=== PATIENT | female | born 1990 | race Caucasian/White ===

== ENCOUNTER 2016-12-11 18:50 | Emergency (ER) | payer OTHER ==
--- NOTE | 2016-12-11 20:10 | ED ---
General Adult HPI - General Chief complaint: Skin/Abscess/Foreign Body Stated complaint: lump on left arm Time Seen by Provider: 12/11/16 20:01 Source: patient, RN notes reviewed Mode of arrival: ambulatory Limitations: no limitations - History of Present Illness Initial comments: Patient is a 26-year-old female who presents emergency room today with chief complaint of an abscess to the left forearm. She does admit that she should a few scattered spots just below the main area. She states that she has been pushing squeezing getting drainage out of the area. She also admits that she broke out in a "rash" to the right knee. She states similar. She states she's never had similar symptoms. Denies any other complaints or associated symptoms at this time. Patient denies any recent fever, chills, shortness of breath, chest pain, back pain, abdominal pain, nausea or vomiting, numbness or tingling , dysuria or hematuria, constipation or diarrhea, headaches or visual changes, or any other complaints. - Related Data Previous Rx's Medication Instructions Recorded Sulfamethox-Tmp 800-160Mg [Bactrim 1 tab PO Q12HR #28 tab 12/11/16 DS 800-160 mg] Allergies Allergy/AdvReac Type Severity Reaction Status Date / Time azithromycin Allergy Unknown Verified 12/11/16 18:57 [From Zithromax Z-Yohannes] famotidine [From Pepcid] Allergy Unknown Verified 12/11/16 18:57 Review of Systems ROS Statement: Those systems with pertinent positive or pertinent negative responses have been documented in the HPI. ROS Other: All systems not noted in ROS Statement are negative. Past Medical History Past Medical History: No Reported History History of Any Multi-Drug Resistant Organisms: None Reported Past Surgical History: No Surgical Hx Reported Past Psychological History: No Psychological Hx Reported Smoking Status: Current every day smoker Past Alcohol Use History: None Reported Past Drug Use History: None Reported General Exam - General Exam Comments Initial Comments: General: The patient is awake and alert, in no distress, and does not appear acutely ill. Eye: Pupils are equal, round and reactive to light, extra-ocular movements are intact. No nystagmus. There is normal conjunctiva bilaterally. No signs of icterus. Ears, nose, mouth and throat: There are moist mucous membranes and no oral lesions. Neck: The neck is supple, there is no tenderness or JVD. Cardiovascular: There is a regular rate and rhythm. No murmur, rub or gallop is appreciated. Respiratory: Lungs are clear to auscultation, respirations are non-labored, breath sounds are equal. No wheezes, stridor, rales, or rhonchi. Musculoskeletal: Normal ROM, no tenderness. Strength 5/5. Sensation intact. Pulses equal bilaterally 2+. Neurological: A&O x 3. CN II-XII intact, There are no obvious motor or sensory deficits. Coordination appears grossly intact. Speech is normal. Skin: Does have small abscess to the left forearm measuring approximately centimeter across. There is an ulcerated area centrally does have some yellow drainage. Psychiatric: Cooperative, appropriate mood & affect, normal judgment. Limitations: no limitations Course Vital Signs 12/11/16 18:57 Temperature 98.1 F Pulse Rate 91 Respiratory 17 Rate Blood Pressure 130/76 O2 Sat by Pulse 100 Oximetry Medical Decision Making - Medical Decision Making Abscesses drained here the emergency room. Will be started on antibiotics of Bactrim. Advised to follow family doctor return if any symptoms increase worsen or for any other concerns Disposition Clinical Impression: Abscess Disposition: HOME SELF-CARE Condition: Good Instructions: Abscess (ED) Additional Instructions: Please his antibiotic as prescribed. Please continue warm compresses to the affected area. Please follow-up with family doctor in the next 2 days of symptoms have not improved. Please return to emergency room if the symptoms increase or worsen or for any other concerns. Prescriptions: Sulfamethox-Tmp 800-160Mg [Bactrim DS 800-160 mg] 1 tab PO Q12HR #28 tab Referrals: None,Stated [Primary Care Provider] - 1-2 days Shahnaz Cardoza MD [REFERRING] - 1-2 days Scotty Ulrich DO [STAFF PHYSICIAN] - 1-2 days Time of Disposition: 20:08
[2016-12-11 20:35] VITALS: BP 126/80; PULSE 94; RESP 16; TEMP 98.7
== END 2016-12-11 20:34 | disposition home or self-care (01) ==
LOC: EC 18:50
DX: L02.414 Cutaneous abscess of left upper limb (principal); R21 Rash and other nonspecific skin eruption; F17.200 Nicotine dependence, unspecified, uncomplicated; Z88.1 Allergy status to other antibiotic agents; Z88.8 Allergy status to other drugs, medicaments and biological substances
CPT/HCPCS: 99282

== ENCOUNTER 2017-02-04 19:47 | Emergency (ER) | payer OTHER ==
[2017-02-04 20:09] VITALS: BP 134/87; PULSE 99; RESP 16; TEMP 98.6
--- NOTE | 2017-02-04 20:30 | ED ---
General Adult HPI - General Chief complaint: Skin/Abscess/Foreign Body Stated complaint: Skin abcess Time Seen by Provider: 02/04/17 19:53 Source: patient, RN notes reviewed Mode of arrival: ambulatory Limitations: no limitations - History of Present Illness Initial comments: This is a 26-year-old female who presents to the emergency department with chief complaint of right axilla abscess. Patient states that it has been present for 4 days. She states that this started as a small white head pimple. She states that the pain has progressed and radiates down her arm. She states that 2 months ago she had an abscess on her left forearm that drained on its own and was resolved with prescription of Bactrim. Denies fever, chills, chest pain, shortness of breath, abdominal pain, nausea or vomiting, constipation or diarrhea, dysuria or hematuria, numbness or tingling, headache or vision changes. - Related Data Previous Rx's Medication Instructions Recorded Sulfamethox-Tmp 800-160Mg [Bactrim 1 tab PO Q12HR #20 tab 02/04/17 DS 800-160 mg] Allergies Allergy/AdvReac Type Severity Reaction Status Date / Time azithromycin Allergy Unknown Verified 12/11/16 18:57 [From Zithromax Z-Yohannes] famotidine [From Pepcid] Allergy Unknown Verified 12/11/16 18:57 Review of Systems ROS Statement: Those systems with pertinent positive or pertinent negative responses have been documented in the HPI. ROS Other: All systems not noted in ROS Statement are negative. Past Medical History Past Medical History: No Reported History History of Any Multi-Drug Resistant Organisms: None Reported Past Surgical History: No Surgical Hx Reported Past Psychological History: No Psychological Hx Reported Smoking Status: Current every day smoker Past Alcohol Use History: None Reported Past Drug Use History: None Reported General Exam - General Exam Comments Initial Comments: General: Awake and alert, well-developed; in no apparent distress. HEENT: Head atraumatic, normocephalic. Pupils are equal, round and reactive to light. Extraocular movements intact. Neck: Supple. Normal ROM. Cardiovascular: Regular rate and rhythm. No murmurs, rubs or gallops. Chest symmetrical. Respiratory: Lungs clear to auscultation bilaterally. No wheezes, rales or rhonchi. Normal respiratory effort with no use of accessory muscles. Musculoskeletal: Normal range of motion of right shoulder. Sensation is intact. Radial pulses 2+ equal and palpable bilaterally. Skin: [place], warm and dry without rashes. There is an approximately 2 cm firm mass in right axilla with overlying pustule. Tenderness on palpation of this area. Neurological: Alert and oriented x3. CN II-XII grossly intact. Speech is fluent and answers are appropriate. No focal neuro deficits. Psychiatric: Normal mood and affect. No overt signs of depression or anxiety noted. Limitations: no limitations Course Vital Signs 02/04/17 20:05 Temperature 98.6 F Pulse Rate 99 Respiratory 16 Rate Blood Pressure 134/87 O2 Sat by Pulse 98 Oximetry Procedures - Incision & Drainage Consent Obtained: verbal consent Indication: abscess Site: upper extremity (right axilla) Size (cm): 2 Anesthetic Used: lidocaine 1% Amount (mLs): 3 I&D Cleaning Method: Alcohol Wipe Sterile Field Used?: No Scalpel Used: #11 Needle Aspiration Performed?: No Irrigation Performed?: No I&D Drainage Obtained: Pus, Blood Culture Obtained?: No Patient Tolerated Procedure: well, no complications Medical Decision Making - Medical Decision Making This is a 26-year-old female who presents with chief complaint of right axilla abscess. There is a 2 cm firm mass with overlying pustule in right axilla. I& D was performed. Patient tolerated well without complication. She is in no acute distress at this time. She will be discharged home with a prescription for Bactrim. She is to follow up with her primary care provider in 1-2 days. Patient was educated on using warm compresses and to allow incision site to drain. She is in agreement to the plan and voices understanding. All questions were answered. Disposition Clinical Impression: Abscess of axilla, right Disposition: HOME SELF-CARE Condition: Good Instructions: Abscess (ED), Warm Compress or Soak (ED) Additional Instructions: Please take medications as prescribed. Please follow up with primary care provider within 1-2 days. Return to emergency department if symptoms should worsen or any concerns arise. Prescriptions: Sulfamethox-Tmp 800-160Mg [Bactrim DS 800-160 mg] 1 tab PO Q12HR #20 tab Referrals: None,Stated [Primary Care Provider] - 1-2 days Time of Disposition: 20:30
== END 2017-02-04 20:35 | disposition home or self-care (01) ==
LOC: EC 19:47
DX: L02.411 Cutaneous abscess of right axilla (principal); F17.200 Nicotine dependence, unspecified, uncomplicated; Z88.1 Allergy status to other antibiotic agents; Z88.8 Allergy status to other drugs, medicaments and biological substances
CPT/HCPCS: 10060; 99283

== ENCOUNTER 2017-03-15 20:43 | Emergency (ER) | payer OTHER ==
[2017-03-16 11:33] LABS: Amorphous Sediment,Urine Rare /hpf; Appearance,Urine Cloudy (Clear); Bilirubin,Urine Negative (Negative); Blood,Urine Negative (Negative); Color,Urine Yellow; Glucose,Urine (UA) Negative (Negative); Ketones,Urine Negative (Negative); Leukocyte Esterase,Urine Moderate (Negative); Nitrite,Urine Negative (Negative); PH, Urine 6.5 (5.0-8.0); Protein,Urine Trace (Negative); RBC,Urine 1 /hpf (0-5); Specific Gravity,Urine 1.026 (1.001-1.035); Squamous Epithelial Cell,Urine 15 /hpf (0-4); Urobilinogen,Urine <2.0 mg/dL (<2.0); WBC,Urine 13 /hpf (0-5)
--- NOTE | 2017-03-16 16:45 | US ---
EXAMINATION TYPE: US pelvis complete transvag EXAM PERFORMED: transabdominal (TA) and transvaginal (TV) EXAM MEASUREMENTS: GESTATIONAL AGE / DATING Physician Established: not established Dates by LMP: (5wks/0 days) EDC: 11/16/17 Dates by First Scan: no prior scan Dates by Current Scan: no evidence of IUP at this time MATERNAL ANATOMY Uterus: 8.8 x 4.3 x 5.5cm a hyperechoic focus which causes posterior acoustic shadowing is identifie d within the uterus. Right Ovary: 3.7 x 2.3 x 2.4cm physiologic changes are noted. Left Ovary: 3.0 x 1.9 x 2.1cm physiologic changes are noted. Post CDS / Adnexa: anechoic area adjacent to right ovary = 1.0cm there could be a small amount of fr ee fluid. Presence of corpus luteal cyst: yes, right ovary = 1.6 x 1.3 x 1.7cm GESTATION / SURVEY No IUP seen at this time PATIENT HISTORY: IUD placement 1.5 years ago Date of LMP: 02/09/17 TECH IMPRESSION: No evidence of an IUP at this time. IUD visualized within body of uterus. Probable corpus luteum right ovary. Anechoic area right adnexa, adjacent to right ovary = 1.0cm ?possible fr ee fluid IMPRESSION: A live intrauterine is not identified. An ectopic is not excluded. Recommend foll ow-up with serial beta hCG and further imaging can be obtained if warranted.
--- NOTE | 2017-03-18 00:15 | CDI ---
Documentation Clarification OP Dear LEE Meneses: Please do addendum of ED physician Document. Thank you, Olga Arias [employer] Operator If you have any question, Please contact medical billing and coding instructor at [phone] [facility]
== END 2017-03-16 01:04 | disposition home or self-care (01) ==
LOC: EC 20:43
DX: Z32.01 Encounter for pregnancy test, result positive (principal); Z88.1 Allergy status to other antibiotic agents; Z88.8 Allergy status to other drugs, medicaments and biological substances
CPT/HCPCS: 36415; 76830; 76856; 81001; 84702; 86900; 86901; 99283

== ENCOUNTER 2017-04-03 11:06 | Emergency (ER) | payer OTHER ==
--- NOTE | 2017-04-03 11:37 | ED ---
Upper Extremity HPI - General Chief Complaint: Extremity Injury, Upper Stated Complaint: LEFT WRIST INJURY Time Seen by Provider: 04/03/17 11:17 Source: patient, RN notes reviewed Mode of arrival: ambulatory Limitations: no limitations - History of Present Illness Initial Comments: 26-year-old female presents emergency Department chief complaint of left wrist, some pain. She has had pain for last 1 week. She states that she believes she injured it while at work. 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 She states that she felt that she jammed her thumb. She's been wearing a brace that her mother gave her since yesterday. She states her employer sent her here for evaluation and that she needed to be 100% cleared before going back to work. She is right-hand dominant denies any paresthesias. States is a throbbing pain from her wrist into her thumb. She has no difficulty moving any of her digits other than pain over the first digit. Patient denies any rashes no erythema. Denies fever, chills. - Related Data Previous Rx's Medication Instructions Recorded Ibuprofen [Motrin] 600 mg PO Q8HR PRN #30 tab 04/03/17 Allergies Allergy/AdvReac Type Severity Reaction Status Date / Time azithromycin Allergy Rash/Hives Verified 04/03/17 11:51 [From Zithromax Z-Yohannes] famotidine [From Pepcid] Allergy Rash/Hives Verified 04/03/17 11:51 Review of Systems ROS Statement: Those systems with pertinent positive or pertinent negative responses have been documented in the HPI. ROS Other: All systems not noted in ROS Statement are negative. Past Medical History Past Medical History: No Reported History History of Any Multi-Drug Resistant Organisms: None Reported Past Surgical History: No Surgical Hx Reported Past Psychological History: No Psychological Hx Reported Smoking Status: Current every day smoker Past Alcohol Use History: None Reported Past Drug Use History: None Reported General Exam Limitations: no limitations General appearance: alert, in no apparent distress Head exam: Present: atraumatic, normocephalic, normal inspection Respiratory exam: Present: normal lung sounds bilaterally. Absent: respiratory distress, wheezes, rales, rhonchi, stridor Cardiovascular Exam: Present: regular rate, normal rhythm, normal heart sounds. Absent: systolic murmur, diastolic murmur, rubs, gallop, clicks Extremities exam: Present: other (Left thumb there is minimal swelling, no erythema no rashes noted, patient reports pain with range of motion though has full range of motion. Cap refill less than 2 seconds there is mild tenderness over the MCP region and primarily over the left wrist on the lateral aspect there is no snuffbox tenderness) Skin exam: Present: warm, dry, intact, normal color. Absent: rash Course Vital Signs 04/03/17 11:13 Temperature 99.2 F Pulse Rate 73 Respiratory 20 Rate Blood Pressure 152/94 O2 Sat by Pulse 100 Oximetry Medical Decision Making - Medical Decision Making This a 26-year-old female presented emergency department for left wrist and thumb pain. Patient's x-rays reviewed shows no acute mildly. Patient reportedly injured this at work. Patient symptoms are consistent with sprain versus tendinitis. Patient was started on anti-inflammatories given a work note for the next 3 days to remain off work and she is to return to work with recheck on Saturday if symptoms aren't improved. Patient agrees to plan and all questions were answered Disposition Clinical Impression: Wrist sprain Disposition: HOME SELF-CARE Condition: Stable Instructions: Wrist Injury (ED) Additional Instructions: Please return to the Emergency Department if symptoms worsen or any other concerns. Prescriptions: Ibuprofen [Motrin] 600 mg PO Q8HR PRN #30 tab PRN Reason: Pain Referrals: None,Stated [Primary Care Provider] - 1-2 days Time of Disposition: 11:57
--- NOTE | 2017-04-03 11:43 | XR ---
EXAMINATION TYPE: XR wrist complete LT DATE OF EXAM: 04/03/2017 CLINICAL HISTORY: pain TECHNIQUE: Frontal, lateral and oblique images of the left wrist are obtained. COMPARISON: None. FINDINGS: There is no acute fracture/dislocation evident. The joint spaces appear within normal reese its. The overlying soft tissue appears unremarkable. IMPRESSION: There is no acute fracture or dislocation seen. ICD 10 NO FRACTURE, INITIAL EVALUATION
[2017-04-03 12:17] VITALS: BP 159/83; PULSE 75; RESP 17; TEMP 97.5
== END 2017-04-03 12:17 | disposition home or self-care (01) ==
LOC: EC 11:06
DX: S63.502A Unspecified sprain of left wrist, initial encounter (principal); F17.200 Nicotine dependence, unspecified, uncomplicated; Z88.1 Allergy status to other antibiotic agents; Z88.8 Allergy status to other drugs, medicaments and biological substances; W23.0XXA Caught, crushed, jammed, or pinched between moving objects, initial encounter; Y93.89 Activity, other specified; Y92.69 Other specified industrial and construction area as the place of occurrence of the external cause; Y99.0 Civilian activity done for income or pay
CPT/HCPCS: 99283